=== PATIENT | male | born 1950 | race Caucasian/White ===

== ENCOUNTER 2023-12-11 06:50 | Day surgery (SDC) | payer MEDICARE ==
[2023-12-11] MEDS ORDERED: fentaNYL 100 MCG/2 ML SDV IV ONE (06:51)
[2023-12-11] MEDS ORDERED: Midazolam 1 MG/ML 2 ML SDV IV ONE (06:51)
[2023-12-11] MEDS ORDERED: Propofol 200 MG/20 ML SDV IV ONE (06:51)
[2023-12-11] MEDS ORDERED: Sodium Chloride 0.9% 10 ML Syringe FLUSH PRN (07:00)
[2023-12-11] MEDS: Lactated Ringers 1,000 ML IV SCH (07:26)
[2023-12-11] MEDS: Simethicone Drops 40 MG/0.6 ML 30 ML Bottle ONE ×2 (08:23→08:29)
== END 2023-12-11 09:58 | disposition home or self-care (01) ==
LOC: FB.SDS 06:50
PROVIDERS: ATTEND Surgery
DX: Z12.11 Encounter for screening for malignant neoplasm of colon (principal); K62.1 Rectal polyp; K57.30 Diverticulosis of large intestine without perforation or abscess without bleeding; K40.90 Unilateral inguinal hernia, without obstruction or gangrene, not specified as recurrent; Z86.010 Personal history of colon polyps; Z79.899 Other long term (current) drug therapy
CPT/HCPCS: 00811; 45384; 88305; 99100; A9270; J2250; J2704; J3010; J7120